=== PATIENT | female | born 1990 | race Caucasian/White ===

== ENCOUNTER 2018-07-07 09:45 | Inpatient (IN) | payer OTHER ==
[~2018-07-07] VITALS: Ht 172.7 cm; Wt 119.4 kg
[2018-07-07 09:50] VITALS: Ht 172.7 cm; Wt 119.4 kg
[2018-07-07 11:01] LABS: CALCIUM 9.3 mg/dL (8.5-10.1); CARBON DIOXIDE 24.9 mmol/L (21-32); CHLORIDE SERUM 100 mmol/L (98-107); CREATININE SERUM 1.1 mg/dL (0.6-1.0); GFR1 > 60 mL/min; GLUCOSE SERUM 191 mg/dL (74-106); POTASSIUM SERUM 4.4 mmol/L (3.5-5.1); SODIUM SERUM 135 mmol/L (136-145)
[2018-07-07 11:05] LABS: ALBUMIN 3.4 g/dL (3.4-5.0); ALKALINE PHOSPHATASE 78 U/L (46-116); ALT/SGPT 24 U/L (14-59); AST/SGOT 15 U/L (15-37); BILIRUBIN TOTAL 0.4 mg/dL (0.20-1.00); LIPASE 160 IU/L (73-393)
[2018-07-07 11:06] LABS: TOTAL PROTEIN, SERUM 8.6 g/dL (6.4-8.2)
[2018-07-07 11:10] LABS: BASOPHIL % 0.3 % (0-2)
[2018-07-07 11:15] LABS: PLATELET COUNT 466 x10^3mcL (130-400); RED CELL DISTRIBUTION WIDTH 17.2 % (11.5-14.5); rbc morphology (normal/abnorm) ABNORMAL (NORMAL)
[2018-07-07 12:44] LABS: microscopic required? YES; urine erythrocyte 3+ (NEGATIVE)
[2018-07-07] MEDS ORDERED: NATURAL IRON65 MG PO (13:39)
[2018-07-07] MEDS ORDERED: METFORMIN HYDR500 M1 PO (13:39)
[2018-07-07] MEDS ORDERED: LISINOPRIL2.5 MG PO (13:40)
[2018-07-07 14:00] VITALS: BP 106/98
[2018-07-07 17:28] VITALS: BP 106/74
[2018-07-07 20:51] VITALS: BP 109/45
[2018-07-08 05:04] VITALS: BP 127/64
[2018-07-08 08:59] VITALS: BP 106/67
[2018-07-08 10:08] LABS: BASOPHIL % 0.1 % (0-2); PLATELET COUNT 373 x10^3mcL (130-400)
[2018-07-08 10:13] LABS: RED CELL DISTRIBUTION WIDTH 17.3 % (11.5-14.5)
[2018-07-08 10:24] LABS: BILIRUBIN TOTAL 0.3 mg/dL (0.20-1.00); CALCIUM 8.1 mg/dL (8.5-10.1); CARBON DIOXIDE 25.2 mmol/L (21-32); CREATININE SERUM 1.2 mg/dL (0.6-1.0); MAGNESIUM 1.8 mg/dL (1.8-2.4); PHOSPHOROUS 3.1 mg/dL (2.5-4.9); POTASSIUM SERUM 3.9 mmol/L (3.5-5.1); TOTAL PROTEIN, SERUM 6.8 g/dL (6.4-8.2)
[2018-07-08 10:25] LABS: ALBUMIN 2.6 g/dL (3.4-5.0)
[2018-07-08 17:00] VITALS: BP 130/66
[2018-07-08 21:09] VITALS: BP 124/63
[2018-07-09 05:17] VITALS: BP 125/71
[2018-07-09 06:19] LABS: BASOPHIL % 0.2 % (0-2); PLATELET COUNT 349 x10^3mcL (130-400)
[2018-07-09 06:32] LABS: ALKALINE PHOSPHATASE 70 U/L (46-116); ALT/SGPT 18 U/L (14-59); AST/SGOT 15 U/L (15-37); BILIRUBIN TOTAL 0.2 mg/dL (0.20-1.00); CALCIUM 8.4 mg/dL (8.5-10.1); CARBON DIOXIDE 24.6 mmol/L (21-32); CHLORIDE SERUM 102 mmol/L (98-107); GFR1 > 60 mL/min; GLUCOSE SERUM 136 mg/dL (74-106); PHOSPHOROUS 3.7 mg/dL (2.5-4.9); POTASSIUM SERUM 3.9 mmol/L (3.5-5.1); SODIUM SERUM 137 mmol/L (136-145); TOTAL PROTEIN, SERUM 7.2 g/dL (6.4-8.2)
[2018-07-09 06:55] LABS: RED CELL DISTRIBUTION WIDTH 17.3 % (11.5-14.5)
[2018-07-09 07:08] LABS: ALBUMIN 2.6 g/dL (3.4-5.0)
[2018-07-09 08:50] VITALS: BP 136/65
[2018-07-09 13:17] VITALS: BP 132/70
== END 2018-07-09 14:08 | disposition home or self-care (01) | DRG 690 ==
LOC: ED 09:45 → MU 15:23
PROVIDERS: Emergency Medicine; Internal Medicine Pulmonary Disease
DX: N39.0 Urinary tract infection, site not specified (principal); Z68.41 Body mass index [BMI] 40.0-44.9, adult; N13.2 Hydronephrosis with renal and ureteral calculous obstruction; E11.9 Type 2 diabetes mellitus without complications; I10 Essential (primary) hypertension; E66.9 Obesity, unspecified; Z79.4 Long term (current) use of insulin; Z87.442 Personal history of urinary calculi
CPT/HCPCS: 82962; J1885; J1956; J2270; J2405; J7030; Q0092; Q0162

== ENCOUNTER 2019-06-16 10:47 | Emergency (ER) | payer OTHER ==
[~2019-06-16] VITALS: Ht 172.7 cm; Wt 117.9 kg
[~2019-06-16 10:47] MED LIST: LISINOPRIL2.5 MG PO; METFORMIN HYDR500 M1 PO; NATURAL IRON65 MG PO
[2019-06-16 11:00] VITALS: Ht 172.7 cm; Wt 117.9 kg
[2019-06-16 11:13] LABS: BASOPHIL % 0.2 % (0-2); PLATELET COUNT 328 x10^3mcL (130-400)
[2019-06-16 11:15] LABS: RED CELL DISTRIBUTION WIDTH 15.7 % (11.5-14.5)
[2019-06-16 11:29] LABS: CALCIUM 8.5 mg/dL (8.5-10.1); CARBON DIOXIDE 23.4 mmol/L (21-32); CHLORIDE SERUM 103 mmol/L (98-107); CREATININE SERUM 0.7 mg/dL (0.6-1.0); GFR1 > 60 mL/min; GLUCOSE SERUM 136 mg/dL (74-106); POTASSIUM SERUM 4.6 mmol/L (3.5-5.1); SODIUM SERUM 138 mmol/L (136-145)
[2019-06-16 11:34] LABS: ALBUMIN 3.6 g/dL (3.4-5.0); ALKALINE PHOSPHATASE 50 U/L (46-116); ALT/SGPT 20 U/L (14-59); AST/SGOT 6 U/L (15-37); BILIRUBIN TOTAL 0.19 mg/dL (0.20-1.00); LIPASE 242 IU/L (73-393); TOTAL PROTEIN, SERUM 7.9 g/dL (6.4-8.2)
[2019-06-16 19:13] VITALS: BP 139/68
== END 2019-06-16 19:14 | disposition home or self-care (01) ==
LOC: ED 10:47
DX: R10.9 Unspecified abdominal pain (principal); E11.9 Type 2 diabetes mellitus without complications; Z88.1 Allergy status to other antibiotic agents
CPT/HCPCS: 36415; J1885; Q0092